=== PATIENT | male | born 1950 | race Hispanic/Latino ===

== ENCOUNTER 2018-12-27 06:57 | Day surgery (SDC) | payer OTHER ==
[~2018-12-27] VITALS: Ht 167.6 cm; Wt 105.7 kg
[~2018-12-27 06:57] MED LIST: ATOR40TA71 PO; BUSP5TAB3 PO; CARV25TA PO; CLOP75TA32 PO; GABA-529 PO; ISOS30TA6 PO; LATANOPROST OU; LORA10TA7 PO; METF-444 PO; PARO30TA60 PO; SODIUM CHLORIDE 0.9% 1000ML 1,000 ML IV ONE; TRAZODONE PO; [UNRECOGNIZED DRUG - OTHER] PO
[2018-12-27 07:47] VITALS: BP 119/69
[2018-12-27] MEDS ORDERED: TOPI25TA48 PO (08:56)
[2018-12-27] MEDS ORDERED: NAPR-1180 PO (08:56)
[2018-12-27] MEDS ORDERED: CALC600T12 PO (08:56)
[2018-12-27] MEDS ORDERED: TAMS0.4C32 PO (08:56)
[2018-12-27] MEDS ORDERED: FERR325T21 PO (08:56)
[2018-12-27] MEDS ORDERED: ASPI-555 PO (08:56)
[2018-12-27] MEDS ORDERED: CARB15DR97 OU (08:56)
[2018-12-27] MEDS ORDERED: OMEG1CAP2 PO (08:56)
[2018-12-27] MEDS ORDERED: MECL-111 PO (08:56)
[2018-12-27] MEDS ORDERED: OXYB5TAB10 PO (08:56)
[2018-12-27] MEDS ORDERED: PANT40TA25 PO (08:56)
[2018-12-27] MEDS ORDERED: GABA-533 PO (08:56)
[2018-12-27] MEDS ORDERED: PROPOFOL 10 MG/ML 20ML VIAL IV ONE ×2 (09:11)
[2018-12-27 09:52] VITALS: BP 121/71
[2018-12-27 09:57] VITALS: BP 120/71
[2018-12-27 10:02] VITALS: BP 114/67
[2018-12-27 10:07] VITALS: BP 107/66
[2018-12-27 10:12] VITALS: BP 124/70
== END 2018-12-27 10:20 | disposition home or self-care (01) ==
LOC: DAH 06:57 → ENDO 06:57
PROVIDERS: ATTEND Internal Medicine
DX: K63.5 Polyp of colon (principal); K31.7 Polyp of stomach and duodenum; K31.9 Disease of stomach and duodenum, unspecified; K31.89 Other diseases of stomach and duodenum; Z86.010 Personal history of colon polyps; K64.0 First degree hemorrhoids; K57.30 Diverticulosis of large intestine without perforation or abscess without bleeding; I10 Essential (primary) hypertension; F41.9 Anxiety disorder, unspecified; F32.9 Major depressive disorder, single episode, unspecified; G43.909 Migraine, unspecified, not intractable, without status migrainosus; I25.10 Atherosclerotic heart disease of native coronary artery without angina pectoris; Z85.07 Personal history of malignant neoplasm of pancreas; K21.9 Gastro-esophageal reflux disease without esophagitis; K76.0 Fatty (change of) liver, not elsewhere classified; Z68.36 Body mass index [BMI] 36.0-36.9, adult; Z79.899 Other long term (current) drug therapy; Z79.84 Long term (current) use of oral hypoglycemic drugs; Z98.890 Other specified postprocedural states; E11.40 Type 2 diabetes mellitus with diabetic neuropathy, unspecified
CPT/HCPCS: 43237; 43239; 45380; 82948 ×2; 88305; 93005; A4606; J2704 ×2; J7030

== ENCOUNTER → 2019-01-02 | Outpatient (CLI) | payer OTHER ==
[~2019-01-02] MED LIST changes: +ASPI-555 PO; +CALC600T12 PO; +CARB15DR97 OU; +FERR325T21 PO; -GABA-529 PO; +GABA-533 PO; -ISOS30TA6 PO; -LORA10TA7 PO; +MECL-111 PO; +NAPR-1180 PO; +OMEG1CAP2 PO; +OXYB5TAB10 PO; +PANT40TA25 PO; -SODIUM CHLORIDE 0.9% 1000ML 1,000 ML IV ONE; +TAMS0.4C32 PO; +TOPI25TA48 PO; -[UNRECOGNIZED DRUG - OTHER] PO
== END | disposition home or self-care (01) ==
LOC: OIH 08:37
PROVIDERS: ATTEND Internal Medicine Gastroenterology
DX: N28.1 Cyst of kidney, acquired (principal); K43.9 Ventral hernia without obstruction or gangrene; Z90.49 Acquired absence of other specified parts of digestive tract
CPT/HCPCS: 74176

== ENCOUNTER → 2019-01-18 | Outpatient (CLI) | payer OTHER | END | disposition home or self-care (01) | LOC: RAH 06:40 | PROVIDERS: ATTEND Internal Medicine Gastroenterology | DX: N28.1 Cyst of kidney, acquired (principal) | CPT/HCPCS: 74181 ==

== ENCOUNTER 2023-07-28 10:34 | Day surgery (SDC) | payer OTHER ==
[2023-07-27 14:15] VITALS: BP 141/74; PULSE 90; RESP 20
[2023-07-28] VITALS (13 sets, daily range): BP systolic 103–133; BP diastolic 63–82; PULSE 60–74; RESP 14–16
[~2023-07-28] VITALS: Ht 170.2 cm; Wt 103.1 kg
[~2023-07-28 10:34] MED LIST changes: -ASPI-555 PO; -CALC600T12 PO; -CARB15DR97 OU; +FAMO20TA8 PO; +FERR324T23 PO; -FERR325T21 PO; +FERS325 PO; -GABA-533 PO; +GABA-534 PO; -MECL-111 PO; -NAPR-1180 PO; -OMEG1CAP2 PO; -OXYB5TAB10 PO; -PANT40TA25 PO; +POLY30DR OP; -TAMS0.4C32 PO; +VENL-53 PO
[2023-07-28] MEDS ORDERED: PROPOFOL 10 MG/ML 20ML VIAL IV ONE (13:20)
== END 2023-07-28 15:25 | disposition home or self-care (01) ==
LOC: DAH 10:34 → ENDO 10:34 → EDSTATUS 11:25 → ENDO 15:25
PROVIDERS: ATTEND Internal Medicine Gastroenterology
DX: R10.12 Left upper quadrant pain (principal); K29.50 Unspecified chronic gastritis without bleeding; K44.9 Diaphragmatic hernia without obstruction or gangrene; K31.89 Other diseases of stomach and duodenum; K86.9 Disease of pancreas, unspecified; F41.8 Other specified anxiety disorders; F32.A Depression, unspecified; I10 Essential (primary) hypertension; G43.909 Migraine, unspecified, not intractable, without status migrainosus; E11.9 Type 2 diabetes mellitus without complications; E78.5 Hyperlipidemia, unspecified; K21.9 Gastro-esophageal reflux disease without esophagitis; I25.10 Atherosclerotic heart disease of native coronary artery without angina pectoris; K76.0 Fatty (change of) liver, not elsewhere classified; M19.90 Unspecified osteoarthritis, unspecified site; Z87.891 Personal history of nicotine dependence; Z91.041 Radiographic dye allergy status; Z79.899 Other long term (current) drug therapy; Z79.84 Long term (current) use of oral hypoglycemic drugs; Z98.49 Cataract extraction status, unspecified eye; Z90.49 Acquired absence of other specified parts of digestive tract; Z98.890 Other specified postprocedural states
CPT/HCPCS: 43259; 82948 ×2; 43239; J2704; A4620; A4215 ×2; A4223; A7002; A4222; A4221; A4663; A4216; A4606; J3490